=== PATIENT | female | born 1980 | race Caucasian/White ===

== ENCOUNTER 2016-08-29 21:50 | Emergency (ER) | payer OTHER ==
[~2016-08-29] VITALS: Ht 177.8 cm; Wt 98.2 kg
[~2016-08-29 21:50] MED LIST: ANTIFUNGAL30 GM TP; Motrin PO; NATALCARE RX1 TABLET PO
[2016-08-29 22:53] LABS: HEMATOCRIT 37.6 % (36.0-46.0); MCH 27.1 PG (29.0-34.0); MCHC 32.7 G/DL (30.0-36.0); MCV 82.8 FL (83-99); MEAN PLAT.VOLUME 10.3 uM^3 (9.5-12.4); PLATELET COUNT 275 K/uL (156-360); RBC DIS.WIDTH-CV 14.6 % (11.8-14.6); RBC DIS.WIDTH-SD 43.8 % (39-53); RED BLOOD COUNT 4.54 M/uL (3.80-5.20); WHITE BLOOD COUNT 8.7 K/uL (4.1-10.2)
[2016-08-29 23:05] LABS: CHLORIDE 107 mEq/L (99-109); POTASSIUM 3.5 mEq/L (3.7-5.4); SODIUM 140 mEq/L (136-147)
[2016-08-29 23:07] LABS: GLUCOSE 119 mg/dL (70-99)
[2016-08-29 23:08] LABS: ANION GAP 9 MEQ/L (2-14)
[2016-08-29 23:09] LABS: TOTAL BILIRUBIN 0.3 mg/dL (0.0-1.0)
[2016-08-29 23:11] LABS: ALKALINE PHOSPHATASE 54 IU/L (3-129); GFR ESTIMATE (CALCULATED) > 59 mL/min/
[2016-08-29 23:12] LABS: UREA NITROGEN (BUN) 15 mg/dL (9-23)
[2016-08-29 23:18] LABS: LIPASE 27 U/L (1.0-51.0)
[2016-08-29 23:22] LABS: QUANTITATIVE HCG < 4.0 MIU/ML
[2016-08-29 23:39] LABS: ADD MIUA? YES; BILIRUBIN NEGATIVE; BLOOD NEGATIVE; COLOR YELLOW ((YELLOW)); GLUCOSE (STRIP) NEGATIVE; KETONES 5; LEUKOCYTES MODERATE; NITRITE NEGATIVE; PROTEIN (STRIP) NEGATIVE; SPECIFIC GRAVITY 1.027 (1.000-1.030); UROBILINOGEN 0.2 MG/DL (0.2-1.0)
[2016-08-29 23:45] LABS: BACTERIA RARE /HPF; EPITHELIAL CELLS 1+ /HPF; MUCUS TRACE /LPF; RED BLOOD CELLS 0-5 /HPF (0-5); UCUL ADDED? NO
[2016-08-30] MEDS ORDERED: ZOFRAN ODT4 MG PO (00:57)
[2016-08-30] MEDS ORDERED: PERCOCET 5/31 TABLET PO (00:57)
[2016-08-30] MEDS ORDERED: CIPRO500 MG PO (00:57)
[2016-08-30 01:15] VITALS: BP 137/69
== END 2016-08-30 01:16 | disposition home or self-care (01) ==
LOC: EME 21:50
DX: K80.70 Calculus of gallbladder and bile duct without cholecystitis without obstruction (principal); N39.0 Urinary tract infection, site not specified
CPT/HCPCS: 76705; 80053; 81003; 83690; 84702; 85027; 87086; 99281; 99284; J2270; J2405; J7030

== ENCOUNTER 2016-09-24 08:52 | Day surgery (SDC) | payer OTHER ==
[~2016-09-24] VITALS: Ht 167.6 cm; Wt 97.5 kg
[~2016-09-24 08:52] MED LIST changes: +CIPRO500 MG PO; +PERCOCET 5/31 TABLET PO; +ZOFRAN ODT4 MG PO
[2016-09-24 09:30] VITALS: BP 112/57
[2016-09-24] MEDS ORDERED: NORCO 10/3251 TABLET PO (11:40)
[2016-09-24 13:20] VITALS: BP 92/53
[2016-09-24 14:25] VITALS: BP 105/53
[2016-09-24 15:00] VITALS: BP 113/56
== END 2016-09-24 15:15 | disposition home or self-care (01) ==
LOC: SDC
PROC: 0FT44ZZ Resection of Gallbladder, Percutaneous Endoscopic Approach (ICD-10-PCS; principal; 2016-09-24)
DX: K80.10 Calculus of gallbladder with chronic cholecystitis without obstruction (principal); K66.0 Peritoneal adhesions (postprocedural) (postinfection); E66.9 Obesity, unspecified; Z68.34 Body mass index [BMI] 34.0-34.9, adult; Z83.3 Family history of diabetes mellitus; Z80.0 Family history of malignant neoplasm of digestive organs; Z87.891 Personal history of nicotine dependence
CPT/HCPCS: 88304; J0131; J0690; J1100; J1170; J1885; J2250; J2405; J2710; J2765; J3010